=== PATIENT | female | born 1960 | race Caucasian/White ===

== ENCOUNTER 2021-03-01 18:25 | Emergency (ER) | payer OTHER ==
[~2021-03-01] VITALS: Ht 170.2 cm; Wt 68.2 kg
[2021-03-01 18:32] VITALS: TEMP 96.9
[2021-03-01 19:41] VITALS: BP 134/76; PULSE 88
== END 2021-03-01 19:40 | disposition home or self-care (01) ==
LOC: COL.ER 18:25
DX: S13.4XXA Sprain of ligaments of cervical spine, initial encounter (principal); V49.40XA Driver injured in collision with unspecified motor vehicles in traffic accident, initial encounter; Y92.411 Interstate highway as the place of occurrence of the external cause